=== PATIENT | female | born 1995 | race Caucasian/White ===

== ENCOUNTER 2024-05-10 11:39 | Emergency (ER) | payer OTHER ==
[~2024-05-10] VITALS: Ht 157.4 cm; Wt 72.1 kg
[2024-05-10 13:03] LABS: BASO % 0.2 % (0.0-1.0); EOS # 0.1 10*3/uL (0.0-0.4); EOS % 0.6 % (1.0-4.0); HEMATOCRIT 30.9 % (37.0-47.0); LYMPH % 7.5 % (27.0-41.0); MEAN CORPUSCULAR HGB 30.4 pg (27.0-31.0); MEAN PLATELET VOLUME 9.4 fl (9.6-12.3); MONO # 0.7 10*3/uL (0.1-1.0); MONO % 5.3 % (3.0-9.0); NEUT # 11.9 10*3/uL (2.3-7.9); NEUT % 85.5 % (47.0-73.0); PLATELET COUNT AUTOMATED 215 10*3/uL (130-400); RED BLOOD COUNT 3.36 10*6/uL (4.10-5.10); RED CELL DISTRI WIDTH 14.6 % (0-14.5); WHITE BLOOD COUNT 13.9 10*3/uL (4.8-10.8)
[2024-05-10 13:25] LABS: ALKALINE PHOSPHATASE 120 U/L (46-116); BUN 7 mg/dl (9-23); CHLORIDE 104 mmol/L (98-107); POTASSIUM 3.7 mmol/L (3.4-5.1); SGPT/ALT 35 U/L (5-49); TOTAL PROTEIN 5.8 gm/dL (6.0-8.0)
[2024-05-10] MEDS ORDERED: ACETAMINOPHEN 325 MG TAB PO ONE (14:45)
[2024-05-10] MEDS ORDERED: FUROSEMIDE 20 MG/2 ML VIAL IV ONE (14:45)
[2024-05-10] MEDS ORDERED: Na Phos, Dibasic/Na Phos, Mo 1 EA BOT R ONE (14:50)
[2024-05-10] MEDS ORDERED: HYDROCODONE-AC1 EAC1 PO (15:17)
== END 2024-05-10 17:06 | disposition home or self-care (01) ==
LOC: ED 11:39
PROVIDERS: Physician Assistant Medical
DX: K59.00 Constipation, unspecified (principal); R06.02 Shortness of breath; Z98.890 Other specified postprocedural states